=== PATIENT | female | born 1970 | race Two or more races ===

== ENCOUNTER 2023-04-01 20:32 | Inpatient (IN) | payer BC, OTHER ==
[~2023-04-01] VITALS: Ht 152.4 cm; Wt 64.0 kg
[2023-04-01 22:37] LABS: Basophils # (auto) 0 10 ^3/uL (0-0.2); Basophils % (auto) 0.5 % (0.0-2.0); Eosinophils # (auto) 0.1 10 ^3/uL (0-0.8); Eosinophils % (auto) 2.1 % (0.0-7.0); Hematocrit 43.9 % (36.0-46.0); Hemoglobin 15.4 g/dL (12.2-16.2); Lymphocytes # (auto) 1.4 10 ^3/uL (0.4-5.4); Lymphocytes % (auto) 21.9 % (10.0-50.0); Mean Corpuscular Hgb Conc. 34.9 g/dL (32.0-36.0); Mean Corpuscular Volume 91.6 fL (80.0-100.0); Monocytes # (auto) 0.4 10 ^3/uL (0-1.3); Monocytes % (auto) 6.4 % (0.0-12.0); Neutrophils # (auto) 4.5 10 ^3/uL (1.6-8.6); Neutrophils % (auto) 69.1 % (37.0-80.0); Nucleated Red Blood Cells % 0.1 %; Red Cell Distribution Width 12.1 % (11.8-14.3); White Blood Cell 6.5 10^3/uL (4.4-10.8)
[2023-04-01 22:43] LABS: Urine Bacteria FEW /hpf (None Seen); Urine Blood Negative /uL (Negative); Urine Mucus FEW (None Seen); Urine Specific Gravity 1.035 (1.001-1.035); Urine WBC 3 /hpf (0 - 5)
[2023-04-01 22:57] LABS: Albumin 3.7 g/dL (3.4-5.0); Calcium 8.6 mg/dL (8.5-10.1); Potassium 3.7 mmol/L (3.5-5.1)
[2023-04-01 23:00] LABS: BUN/Creatinine Ratio 14.8 (10.0-20.0); Bilirubin, Total 2.7 mg/dL (0.2-1.0); Total Protein 8.5 g/dL (6.4-8.2)
[2023-04-02] MEDS ORDERED: ONDANSETRON HCL 4 MG/2 ML VIAL IV ONE (05:45)
[2023-04-02] MEDS ORDERED: SODIUM CHLORIDE 0.9% 1,000 ML IV ONE (05:45)
[2023-04-02] MEDS ORDERED: MORPHINE SULFATE 4 MG/ML SYR/VIAL IV ONE (05:45)
[2023-04-02 08:37] LABS: INR 1.13 (0.9-1.15); Partial Thromboplastin Time 26.7 sec (24.6-33.4)
[2023-04-02] MEDS ORDERED: DOCUSATE SOD 100 MG CAP PO PRN (09:15)
[2023-04-02] MEDS: SODIUM CHLORIDE 0.9% 1,000 ML IV SCH ×2 (15:20→17:35)
[2023-04-02] MEDS: MORPHINE SULFATE INJ 2 MG/ml SYRG IV PRN ×2 (18:13→22:41)
[2023-04-02] MEDS: ONDANSETRON HCL 4 MG/2 ML VIAL IV PRN ×2 (18:13→22:37)
[2023-04-02] MEDS ORDERED: ACETAMINOPHEN 325 MG TAB PO ONE (22:15)
[2023-04-03] MEDS: SODIUM CHLORIDE 0.9% 1,000 ML IV SCH ×3 (01:55→18:39)
[2023-04-03 05:00] VITALS: BP 95/69
[2023-04-03 05:40] LABS: Basophils # (auto) 0 10 ^3/uL (0-0.2); Basophils % (auto) 0.8 % (0.0-2.0); Eosinophils # (auto) 0.4 10 ^3/uL (0-0.8); Hematocrit 37.3 % (36.0-46.0); Hemoglobin 12.9 g/dL (12.2-16.2); Lymphocytes # (auto) 3.1 10 ^3/uL (0.4-5.4); Lymphocytes % (auto) 51.9 % (10.0-50.0); Mean Corpuscular Hemoglobin 32.1 pg (28.0-32.0); Mean Corpuscular Hgb Conc. 34.6 g/dL (32.0-36.0); Mean Corpuscular Volume 92.8 fL (80.0-100.0); Monocytes # (auto) 0.4 10 ^3/uL (0-1.3); Neutrophils # (auto) 2.1 10 ^3/uL (1.6-8.6); Neutrophils % (auto) 35.3 % (37.0-80.0); Nucleated Red Blood Cells % 0.2 %; Red Blood Cells 4.02 10^6/uL (4.0-5.20); Red Cell Distribution Width 12.5 % (11.8-14.3); White Blood Cell 5.9 10^3/uL (4.4-10.8)
[2023-04-03 06:00] LABS: Calcium 8.2 mg/dL (8.5-10.1); Potassium 3.9 mmol/L (3.5-5.1)
[2023-04-03 06:04] LABS: BUN/Creatinine Ratio 16.7 (10.0-20.0); Bilirubin, Total 0.6 mg/dL (0.2-1.0); Total Protein 6.6 g/dL (6.4-8.2)
[2023-04-03 09:17] VITALS: BP 112/64
[2023-04-03] MEDS: PANTOPRAZOLE 40 MG/10 ML VIAL INJ IV SCH (10:53)
[2023-04-03 12:40] VITALS: BP 148/88
[2023-04-03 14:58] LABS: Hepatitis B Surface Antibody Negative (Negative)
[2023-04-03 15:36] LABS: Hepatitis A Total Antibody Negative (Negative)
[2023-04-03 16:26] VITALS: BP 104/57
[2023-04-03 20:00] VITALS: BP 115/72
[2023-04-03] MEDS: MORPHINE SULFATE INJ 2 MG/ml SYRG IV PRN (21:46)
[2023-04-03] MEDS: ONDANSETRON HCL 4 MG/2 ML VIAL IV PRN (21:46)
[2023-04-03 22:00] VITALS: BP 115/72
[2023-04-03 22:15] LABS: Hepatitis C Antibody Negative (Negative)
[2023-04-04] MEDS: SODIUM CHLORIDE 0.9% 1,000 ML IV SCH ×2 (02:55→11:15)
[2023-04-04 04:48] VITALS: BP 105/68
[2023-04-04] MEDS: ONDANSETRON HCL 4 MG/2 ML VIAL IV PRN (04:59)
[2023-04-04] MEDS: MORPHINE SULFATE INJ 2 MG/ml SYRG IV PRN ×2 (05:02→09:23)
[2023-04-04 09:17] VITALS: BP 104/54
[2023-04-04] MEDS: PANTOPRAZOLE 40 MG/10 ML VIAL INJ IV SCH (09:18)
[2023-04-04 11:26] LABS: Albumin 3.1 g/dL (3.4-5.0); Calcium 8.9 mg/dL (8.5-10.1)
[2023-04-04 11:35] LABS: BUN/Creatinine Ratio 15.6 (10.0-20.0); Bilirubin, Total 0.4 mg/dL (0.2-1.0)
[2023-04-04 12:42] VITALS: BP 104/54
[2023-04-04 13:22] VITALS: BP 141/87
== END 2023-04-04 13:35 | disposition home or self-care (01) | DRG 446 ==
LOC: ER 20:35 → OVERFLOW 04-02 09:05 → WEST WING 04-02 21:21
PROVIDERS: ADMIT Nurse Practitioner Family; ATTEND Internal Medicine Geriatric Medicine
DX: K80.20 Calculus of gallbladder without cholecystitis without obstruction (principal); E86.0 Dehydration; K21.9 Gastro-esophageal reflux disease without esophagitis; R74.01 Elevation of levels of liver transaminase levels; E80.6 Other disorders of bilirubin metabolism; R79.89 Other specified abnormal findings of blood chemistry; G47.30 Sleep apnea, unspecified; R73.03 Prediabetes; Z90.710 Acquired absence of both cervix and uterus; Z85.42 Personal history of malignant neoplasm of other parts of uterus
CPT/HCPCS: 36415; 74176; 74181; 76705; 78226; 80053; 81001; 83690; 83735; 84484; 85025; 85610; 85730; 86704; 86706; 86708; 86803; 87340; 93005; C9113; G0378; J2405